=== PATIENT | female | born 2000 | race Caucasian/White ===

== ENCOUNTER 2019-03-08 16:19 | Emergency (ER) | payer MEDICAID ==
[2019-03-08] MEDS ORDERED: FAMOTIDINE 20 MG TABLET PO ONE (17:27)
[2019-03-08] MEDS ORDERED: DIPHENHYDRAMINE HCL 50 MG CAPSULE PO ONE (17:27)
--- NOTE | 2019-03-08 17:27 | ER Document Report ---
HPI - HPI Time Seen by Provider: 03/08/19 16:55 Pain Level: Denies Context: Patient is a 18-year-old female who presents the emergency depart chief complaint of rash that is on her trunk, bilateral arms, bilateral thighs, and back. She states that her rash started this morning. She does admit to having a sore throat. She did some salt water gargles to help her sore throat, but has had little relief. She has had her sore throat for the past couple of days. She also started using Monistat yesterday morning for a possible yeast infection. Denies any other past medical history. She does not take any medications. Admits to marijuana and tobacco use. - CONSTITUTIONAL Constitutional: DENIES: Fever, Chills - EENT EENT: REPORTS: Sore Throat. DENIES: Ear Pain, Nasal Drainage-Clear, Congestion, Eye problems - NEURO Neurology: DENIES: Headache - CARDIOVASCULAR Cardiovascular: DENIES: Chest pain - RESPIRATORY Respiratory: DENIES: Trouble Breathing - GASTROINTESTINAL Gastrointestinal: DENIES: Abdominal Pain - REPRODUCTIVE Reproductive: DENIES: : - MUSCULOSKELETAL Musculoskeletal: DENIES: Extremity pain - DERM Skin Color: Erythema Skin Problems: None Past Medical History - Social History Smoking Status: Current Every Day Smoker Family History: Reviewed & Not Pertinent Vertical Provider Document - CONSTITUTIONAL Agree With Documented VS: Yes Exam Limitations: No Limitations General Appearance: No Apparent Distress - INFECTION CONTROL TRAVEL OUTSIDE OF THE [place] IN LAST 30 DAYS: No - HEENT HEENT: Atraumatic, Normocephalic - NECK Neck: Normal Inspection - RESPIRATORY Respiratory: Breath Sounds Normal, No Respiratory Distress - CARDIOVASCULAR Cardiovascular: Regular Rate, Regular Rhythm Pulses: Normal: Radial - GI/ABDOMEN Gastrointestinal: Abdomen Soft, Abdomen Non-Tender - MUSCULOSKELETAL/EXTREMETIES Musculoskeletal/Extremeties: FROM - NEURO Level of Consciousness: Awake, Alert, Appropriate Motor/Sensory: No Motor Deficit, No Sensory Deficit, No Pronator Drift - DERM Integumentary: Warm, Dry, Rash - Over entire body. Blanches. Course - Re-evaluation Re-evalutation: 03/08/19 17:30 She will receive Benadryl and Pepcid here in the emergency department. She will also have a strep test done and a Monospot test done. 03/08/19 19:10 Strep and mono tests are negative at this time. Patient has had some improvement of her rash. She will be discharged home with Benadryl and Pepcid use at home. She also received a dose of Decadron here in the emergency department. She will follow-up with her primary care doctor. Verbal discharge instructions were given to the patient. They verbalized understanding. They are stable for discharge. - Vital Signs Vital signs: Temp Pulse Resp BP Pulse Ox 98.3 F 104 H 16 132/81 H 97 03/08/19 16:28 03/08/19 16:28 03/08/19 16:28 03/08/19 16:28 03/08/19 16:28 Discharge - Discharge Clinical Impression: Rash Condition: Stable Disposition: HOME, SELF-CARE Additional Instructions: You were seen today in the emergency department for a rash on her body. This could possibly be an allergic reaction to the Monistat. Please take Benadryl 50 mg every 6 hours as needed for your rash or itching. You can also take Pepcid 20 mg twice a day. Please follow-up with your primary care provider in regards to this visit. If you develop shortness of breath, difficulty breathing, or have any symptoms that are worrisome to you, please return to the emergency department.
[2019-03-08] MEDS ORDERED: DEXAMETHASONE SOD PHOS INJ 10 MG/1 ML VIAL IM ONE (19:18)
[2019-03-08 19:23] VITALS: BP 120/83
== END 2019-03-08 19:29 | disposition home or self-care (01) ==
LOC: ER 16:19
DX: R21 Rash and other nonspecific skin eruption (principal); J02.9 Acute pharyngitis, unspecified; F17.200 Nicotine dependence, unspecified, uncomplicated
CPT/HCPCS: 99283; 96372; 36415; 87070; 87880; 87077; 86308; J3490 ×2; J1100